=== PATIENT | female | born 1985 | race African-American/Black ===

== ENCOUNTER 2020-08-15 00:06 | Emergency (ER) | payer MEDICAID ==
[2020-08-15] MEDS ORDERED: TETRACAINE HCL 0.5% OPH SOLN 4 ML OD ONE (01:49)
--- NOTE | 2020-08-15 01:56 | ER Document Report ---
ED Eye Complaint <STACEY CHAVEZ IV - Last Filed: 08/15/20 03:08> - General Mode of Arrival: Ambulatory Information source: Patient <MARCOS PEARCE - Last Filed: 08/15/20 04:00> - General Chief Complaint: Eye Pain Stated Complaint: RIGHT EYE WATERING/PAIN Time Seen by Provider: 08/15/20 01:34 Primary Care Provider: NHAN RIGGS MD [ACTIVE STAFF] - Follow up in 3-5 days - [facility] Notes: Patient is a 35-year-old female who presents with right eye pain that began last night. Patient states her right eye started watering with surrounding swelling 2 weeks ago. She was seen in [place] ED a week ago for the symptoms. She was prescribe Polymyxin eye drops and ketoralac eye drops. She states she used the eye drops for three days. She also endorses right jaw, maxillary pain She denies, fever, nausea, vomiting. (JAVON PEARCEANA Hilton) - Related Data Allergies/Adverse Reactions: No Known Allergies Allergy (Verified 12/28/12 10:23) Past Medical History - Social History Smoking Status: Current Every Day Smoker Chew tobacco use (# tins/day): No Frequency of alcohol use: Occasional Drug Abuse: Marijuana Family History: Reviewed & Not Pertinent Patient has homicidal ideation: No Past Surgical History: Reports: Hx Orthopedic Surgery - L4-5 - Immunizations Immunizations up to date: Yes Hx Diphtheria, Pertussis, Tetanus Vaccination: Yes <MARCOS PEARCE - Last Filed: 08/15/20 04:00> Physical Exam - HEENT Visual acuity- Right eye: 20/30 Visual acuity- Left eye: 20/20 Visual acuity- Both eyes: 20/20 Corrective lenses worn: Yes <MARCOS PEARCE - Last Filed: 08/15/20 04:00> - Vital signs Vitals: Temp Pulse Resp BP Pulse Ox 98.2 F 90 18 111/62 100 08/15/20 00:21 08/15/20 00:21 08/15/20 00:21 08/15/20 00:21 08/15/20 00:21 - Notes Notes: PHYSICAL EXAMINATION: GENERAL: Well-appearing, well-nourished and in no acute distress. HEAD: Atraumatic, normocephalic. EYES: Right eye is erythematous with noted tearing. Edema noted to the upper and lower eyelids. Right eye conjunctiva erythematous with drainage. Left eye sclera anicteric, conjunctiva are normal. ENT: Moist mucous membranes. NECK: Normal range of motion LUNGS: Normal work of breathing HEART: 2+ radial pulses bilaterally EXTREMITIES: no pitting or edema. No cyanosis. NEUROLOGICAL: No focal neurological deficits. Moves all extremities spontaneously and on command. PSYCH: Normal mood, normal affect. SKIN: Warm, Dry, normal turgor, no rashes or lesions noted. (MARCOS PEARCE) Course <MARCOS PEARCE - Last Filed: 08/15/20 04:00> - Re-evaluation Re-evalutation: Patient is a 35 y/o female who presents with right eye complaints for the past two weeks that worsened yesterday. Patient was seen in the ED a week ago for these symptoms and was prescribed Polymyxin and ketoralac eye drops. Vital signs here in the ED are within normal limits. Visual acuity normal. On exam, right eye erythematous with upper and lower eyelid swelling. Conjunctiva red with drainage. I consulted my supervising physician, Dr. Chavez concerning this patient. He performed slit lamp exam as well as measured intraocular pressure. Slip lamp exam showed fluorescein uptake was noted in a stippling pattern consistent with conjunctivitis. Eye culture performed. Patient told to stop using her current eye drops. Erythromycin ophthalmic ointment and norco dose pack given here in the ED. Prescriptions sent for [place] and Vigamox eye drops. Return precautions and follow up instructions given. Plan discussed with patient and she understands and is in agreement with plan. (MARCOS PEARCE) - Vital Signs Vital signs: Temp Pulse Resp BP Pulse Ox 98.7 F 73 17 107/71 97 08/15/20 03:04 08/15/20 03:04 08/15/20 03:04 08/15/20 03:04 08/15/20 03:04 Procedures - Eye Procedure Right Time completed: 02:40 Alcaine Drops Administered: Yes Fluorescein applied: Right Antibiotic Oinment/Drps Admin: Right eye Slit lamp used: Yes <STACEY CHAVEZ IV - Last Filed: 08/15/20 03:08> - Eye Procedure Right Notes: 08/15/20 03:08 Right eye examined with slit lamp. Forcing was instilled into the eye. Fluorescein uptake was noted in a stippling pattern consistent with conjunctivitis. Patient's conjunctiva was injected, and the purulent discharge was present along the eyelid margin. Pupil is equally round and reactive. Negative Adams's test. Extraocular movements intact. Intraocular pressure was checked with both eyes using a Bryant-Pen. Right eye pressure was 17 left eye pressure was 18. (STACEY CHAVEZ IV) Discharge <STACEY CHAVEZ IV - Last Filed: 08/15/20 03:08> <MARCOS PEARCE - Last Filed: 08/15/20 04:00> - Discharge Clinical Impression: Bacterial conjunctivitis of right eye, Acute right eye pain Condition: Stable Disposition: HOME, SELF-CARE Instructions: Conjunctivitis ([facility]), Eyedrop Use ([facility]) Prescriptions: Hydrocodone/Acetaminophen [[place] 5-325 mg Tablet] 1 - 2 tab PO Q6 PRN #12 tablet PRN Reason: Moxifloxacin HCl [Vigamox 0.5% Oph Soln 3 ml] 1 drop OP ASDIR PRN #1 bottle PRN Reason: Referrals: NHAN RIGGS MD [ACTIVE STAFF] - Follow up in 3-5 days
[2020-08-15] MEDS ORDERED: ERYTHROMYCIN 0.5% OPH OINTMENT 3.5 GM (ER DISP) OD PRN (02:53)
[2020-08-15] MEDS ORDERED: HYDROCODONE/ACETAMINOPHEN 5-325 MG (6 TAB/ER DISP) PO PRN (02:55)
[2020-08-15 03:07] VITALS: BP 107/71
== END 2020-08-15 03:10 | disposition home or self-care (01) ==
LOC: ER 00:06
DX: H10.9 Unspecified conjunctivitis (principal); B96.89 Other specified bacterial agents as the cause of diseases classified elsewhere; H57.11 Ocular pain, right eye; F17.200 Nicotine dependence, unspecified, uncomplicated; F12.10 Cannabis abuse, uncomplicated
CPT/HCPCS: 99284; 36415; 87070; 87205; J3490